=== PATIENT | female | born 1975 | race Two or more races ===

== ENCOUNTER 2018-01-17 02:41 | Inpatient (IN) | payer MEDICAID ==
[~2018-01-17] VITALS: Ht 177.8 cm; Wt 99.3 kg
[2018-01-17 03:52] LABS: Basophils # (auto) 0 uL; Basophils % (auto) 0.3 % (0.0-2.0); Eosinophils # (auto) 0 uL; Hematocrit 34.2 % (36.0-46.0); Hemoglobin 11.7 g/dL (12.2-16.2); Lymphocytes # (auto) 0.4 uL; Lymphocytes % (auto) 4.7 % (10.0-50.0); Mean Corpuscular Hemoglobin 30.7 pg (28.0-32.0); Mean Corpuscular Hgb Conc. 34.3 g/dL (32.0-36.0); Mean Corpuscular Volume 89.5 fL (80.0-100.0); Monocytes # (auto) 0.9 uL; Monocytes % (auto) 11.3 % (0.0-12.0); Neutrophils # (auto) 6.5 uL; Neutrophils % (auto) 83.7 % (37.0-80.0); Platelet Count (auto) 238 10^3/uL (140-450); Red Blood Cells 3.83 10^6/uL (4.0-5.20); Red Cell Distribution Width 12.8 % (11.8-14.3); White Blood Cell 7.8 10^3/uL (4.4-10.8)
[2018-01-17 04:08] LABS: Albumin 3.1 g/dL (3.4-5.0); BUN/Creatinine Ratio 10.9; Calcium 7.9 mg/dL (8.5-10.1)
[2018-01-17 04:11] LABS: Bilirubin, Total 0.9 mg/dL (0.2-1.0); Total Protein 6.5 g/dL (6.4-8.2)
[2018-01-17 04:51] LABS: Urine Bacteria FEW /hpf (None Seen); Urine Blood 2+ /uL (Negative); Urine Mucus FEW (None Seen); Urine Specific Gravity 1.007 (1.001-1.035); Urine WBC 45 /hpf (0 - 5)
[2018-01-17] MEDS ORDERED: KETOROLAC TROMETH 30 MG/ML 1ML VIAL IV ONE (06:00)
[2018-01-17] MEDS ORDERED: SODIUM CHLORIDE 0.9% 1,000 ML IV ONE (06:00)
[2018-01-17] MEDS ORDERED: ONDANSETRON HCL 4 MG/2 ML VIAL IV ONE (06:00)
[2018-01-17] MEDS ORDERED: ACETAMINOPHEN 325 MG TAB PO ONE (06:00)
[2018-01-17] MEDS ORDERED: AZITHROMYCIN 500MG/ 250ML 250 ML IV ONE (06:00)
[2018-01-17] MEDS ORDERED: POTASSIUM CHL 20 Meq TABLET PO ONE (07:00)
[2018-01-17] MEDS ORDERED: cefTRIAXone 1GM/10ml IVPUSH 10 ML IV ONE (11:45)
[2018-01-17] MEDS ORDERED: ONDANSETRON HCL 4 MG/2 ML VIAL IV PRN (11:45)
[2018-01-17] MEDS ORDERED: NITROGLYCERIN 0.4 MG SL TAB SL PRN (11:45)
[2018-01-17] MEDS ORDERED: MORPHINE SULFATE 4 MG/ML SYR/VIAL IV PRN ×2 (11:45)
[2018-01-17] MEDS ORDERED: TEMAZEPAM 15 MG CAP PO PRN (11:45)
[2018-01-17] MEDS ORDERED: DEXTROSE (50%) 50ML SYRG IV PRN (11:45)
[2018-01-17] MEDS ORDERED: DOCUSATE SOD 100 MG CAP PO PRN (11:45)
[2018-01-17] MEDS ORDERED: LORATADINE 10 MG TAB PO ONE (11:45)
[2018-01-17] MEDS: SODIUM CHLORIDE 0.9% 1,000 ML IV SCH ×2 (12:28→20:00)
[2018-01-17] MEDS: Glucerna Carbsteady SHAKE Vanilla 8oz PO SCH ×2 (13:25→18:54)
[2018-01-17] MEDS: HYDROcodone-ACET 5/325MG TAB PO PRN (15:57)
[2018-01-17 17:00] VITALS: BP 116/67
[2018-01-17] MEDS: InsuLIN REG 1unit/0.01ml Soln (100units/ml) SC SCH ×2 (17:00→22:00)
[2018-01-17] MEDS: ACCU-CHEK COMFORT CURVE STRIP VI SCH ×2 (18:54→22:00)
[2018-01-17 19:22] LABS: BUN/Creatinine Ratio 13.4; Calcium 7.9 mg/dL (8.5-10.1); Potassium 3.6 mmol/L (3.5-5.1)
[2018-01-17 22:00] VITALS: BP 109/64
[2018-01-17] MEDS: FAMOTIDINE 20 MG TAB PO SCH (22:00)
[2018-01-18] MEDS: SODIUM CHLORIDE 0.9% 1,000 ML IV SCH ×3 (04:20→21:00)
[2018-01-18 04:50] VITALS: BP 123/73
[2018-01-18 05:55] LABS: Hematocrit 33.8 % (36.0-46.0); Hemoglobin 11.8 g/dL (12.2-16.2); Mean Corpuscular Hemoglobin 31.8 pg (28.0-32.0); Mean Corpuscular Volume 90.7 fL (80.0-100.0); Platelet Count (auto) 206 10^3/uL (140-450); Red Blood Cells 3.73 10^6/uL (4.0-5.20); Red Cell Distribution Width 13.3 % (11.8-14.3); White Blood Cell 5.4 10^3/uL (4.4-10.8)
[2018-01-18 05:57] LABS: Band Neutrophils % (manual) 0; Basophils % (manual) 0 (0.0-2.0); Blast Cells 0; Metamyelocytes % 0; Myelocytes % 0; Promyelocytes % 0; Reactive Lymphocytes 0
[2018-01-18 06:30] LABS: Albumin 2.8 g/dL (3.4-5.0); BUN/Creatinine Ratio 12.7; Bilirubin, Total 0.6 mg/dL (0.2-1.0); Calcium 7.9 mg/dL (8.5-10.1); Potassium 4.3 mmol/L (3.5-5.1)
[2018-01-18 06:37] LABS: Eosinophils % (manual) 2 (0-7); Lymphocytes % (manual) 32 (10.0-50.0); Monocytes % (manual) 11 (0-12)
[2018-01-18] MEDS: InsuLIN REG 1unit/0.01ml Soln (100units/ml) SC SCH ×4 (06:38→21:00)
[2018-01-18] MEDS: ACCU-CHEK COMFORT CURVE STRIP VI SCH ×4 (06:38→21:00)
[2018-01-18 07:57] VITALS: BP 110/67
[2018-01-18] MEDS: Glucerna Carbsteady SHAKE Vanilla 8oz PO SCH ×3 (08:00→18:00)
[2018-01-18] MEDS: ACETAMINOPHEN 325 MG TAB PO PRN (09:32)
[2018-01-18] MEDS: MULTIPLE VITAMIN TAB PO SCH (09:32)
[2018-01-18] MEDS: LORATADINE 10 MG TAB PO SCH (09:32)
[2018-01-18] MEDS: cefTRIAXone 1GM/10ml IVPUSH 10 ML IV SCH (09:32)
[2018-01-18] MEDS: FAMOTIDINE 20 MG TAB PO SCH ×2 (09:32→21:02)
[2018-01-18 12:21] VITALS: BP 111/75
[2018-01-18 17:20] VITALS: BP 118/71
[2018-01-18 22:00] VITALS: BP 107/68
[2018-01-19] MEDS: ACETAMINOPHEN 325 MG TAB PO PRN (04:53)
[2018-01-19] MEDS: HYDROcodone-ACET 5/325MG TAB PO PRN (04:53)
[2018-01-19] MEDS: SODIUM CHLORIDE 0.9% 1,000 ML IV SCH ×3 (04:53→20:38)
[2018-01-19 05:00] VITALS: BP 109/55
[2018-01-19] MEDS: InsuLIN REG 1unit/0.01ml Soln (100units/ml) SC SCH (05:54)
[2018-01-19] MEDS: ACCU-CHEK COMFORT CURVE STRIP VI SCH (05:54)
[2018-01-19 08:00] LABS: Basophils # (auto) 0 uL; Basophils % (auto) 0.5 % (0.0-2.0); Eosinophils # (auto) 0.1 uL; Eosinophils % (auto) 0.6 % (0.0-7.0); Hematocrit 32.3 % (36.0-46.0); Hemoglobin 11.1 g/dL (12.2-16.2); Lymphocytes # (auto) 1.5 uL; Mean Corpuscular Hemoglobin 30.7 pg (28.0-32.0); Mean Corpuscular Hgb Conc. 34.5 g/dL (32.0-36.0); Mean Corpuscular Volume 89.1 fL (80.0-100.0); Monocytes # (auto) 1.2 uL; Monocytes % (auto) 11.6 % (0.0-12.0); Neutrophils # (auto) 7.3 uL; Neutrophils % (auto) 72.3 % (37.0-80.0); Platelet Count (auto) 247 10^3/uL (140-450); Red Blood Cells 3.63 10^6/uL (4.0-5.20); Red Cell Distribution Width 12.9 % (11.8-14.3); White Blood Cell 10.1 10^3/uL (4.4-10.8)
[2018-01-19 08:12] LABS: Calcium 7.6 mg/dL (8.5-10.1); Potassium 3.6 mmol/L (3.5-5.1)
[2018-01-19 08:15] LABS: BUN/Creatinine Ratio 8.8
[2018-01-19 08:32] VITALS: BP 100/59
[2018-01-19] MEDS: cefTRIAXone 1GM/10ml IVPUSH 10 ML IV SCH (09:13)
[2018-01-19] MEDS: MULTIPLE VITAMIN TAB PO SCH (09:15)
[2018-01-19] MEDS: FAMOTIDINE 20 MG TAB PO SCH (09:15)
[2018-01-19] MEDS: LORATADINE 10 MG TAB PO SCH (09:16)
[2018-01-19] MEDS: Glucerna Carbsteady SHAKE Vanilla 8oz PO SCH (09:19)
[2018-01-19 14:21] VITALS: BP 130/70
[2018-01-19 17:08] VITALS: BP 119/71
[2018-01-19 22:00] VITALS: BP 109/65
[2018-01-20] MEDS: SODIUM CHLORIDE 0.9% 1,000 ML IV SCH (04:48)
[2018-01-20 05:00] VITALS: BP 108/62
[2018-01-20 07:19] LABS: Basophils # (auto) 0 uL; Basophils % (auto) 0.4 % (0.0-2.0); Eosinophils # (auto) 0.2 uL; Eosinophils % (auto) 2.5 % (0.0-7.0); Hematocrit 31.4 % (36.0-46.0); Hemoglobin 10.8 g/dL (12.2-16.2); Lymphocytes # (auto) 2.5 uL; Lymphocytes % (auto) 29.6 % (10.0-50.0); Mean Corpuscular Hemoglobin 30.9 pg (28.0-32.0); Mean Corpuscular Hgb Conc. 34.3 g/dL (32.0-36.0); Mean Corpuscular Volume 90.3 fL (80.0-100.0); Monocytes # (auto) 1.2 uL; Monocytes % (auto) 14.2 % (0.0-12.0); Neutrophils # (auto) 4.4 uL; Neutrophils % (auto) 53.3 % (37.0-80.0); Nucleated Red Blood Cells % 0.1 %; Platelet Count (auto) 247 10^3/uL (140-450); Red Blood Cells 3.48 10^6/uL (4.0-5.20); Red Cell Distribution Width 12.8 % (11.8-14.3); White Blood Cell 8.3 10^3/uL (4.4-10.8)
[2018-01-20 09:00] VITALS: BP 113/72
[2018-01-20] MEDS: cefTRIAXone 1GM/10ml IVPUSH 10 ML IV SCH (09:40)
[2018-01-20] MEDS: MULTIPLE VITAMIN TAB PO SCH (09:40)
[2018-01-20] MEDS: LORATADINE 10 MG TAB PO SCH (09:41)
== END 2018-01-20 14:02 | disposition home or self-care (01) | DRG 720 ==
LOC: EDBD 02:41 → ER 02:50 → TELE 02:51 → TELE-CENTR 17:17 → CENTRAL 01-19 11:38
PROVIDERS: ADMIT Internal Medicine; ATTEND Internal Medicine
DX: A41.9 Sepsis, unspecified organism (principal); E11.21 Type 2 diabetes mellitus with diabetic nephropathy; E44.0 Moderate protein-calorie malnutrition; E83.51 Hypocalcemia; E11.22 Type 2 diabetes mellitus with diabetic chronic kidney disease; D63.8 Anemia in other chronic diseases classified elsewhere; N39.0 Urinary tract infection, site not specified; E87.6 Hypokalemia; E86.0 Dehydration; B34.9 Viral infection, unspecified; N18.2 Chronic kidney disease, stage 2 (mild); E66.9 Obesity, unspecified; I12.9 Hypertensive chronic kidney disease with stage 1 through stage 4 chronic kidney disease, or unspecified chronic kidney disease; Z68.31 Body mass index [BMI] 31.0-31.9, adult; Z83.3 Family history of diabetes mellitus; Z98.51 Tubal ligation status
CPT/HCPCS: 36415; 71045; 74176; 80048; 80053; 81001; 82962; 83036; 83605; 85007; 85025; 85027; 87040; 87086; 87804; 87807; 93005; 96361; 96365; 96375; J0696; J1885; J2405